=== PATIENT | male | born 1940 | race Caucasian/White ===

== ENCOUNTER → 2017-10-20 | Outpatient (CLI) | payer MEDICARE ==
[~2017-10-20] MED LIST: ASP81CT; OLME40TA14
[2017-10-20 11:30] LABS: BASOPHILS % (AUTO) 0 % (0-10); EOSINOPHILS # (AUTO) 0.1 10^3/uL (0.0-0.3); EOSINOPHILS % (AUTO) 1 % (0-10); HEMATOCRIT 43 % (40-54); HEMOGLOBIN 14.9 G/DL (13.3-17.7); LYMPHOCYTES # (AUTO) 1.3 X 10^3 (1.0-4.0); LYMPHOCYTES % (AUTO) 9 % (12-44); MEAN CORPUSCULAR HEMOGLOBIN 28 PG (25-34); MEAN CORPUSCULAR HGB CONC 35 G/DL (32-36); MEAN CORPUSCULAR VOLUME 79 FL (80-99); MEAN PLATELET VOLUME 10.7 FL (7.4-10.4); MONOCYTES # (AUTO) 1.6 X 10^3 (0.0-1.0); MONOCYTES % (AUTO) 11 % (0-12); NEUTROPHILS # (AUTO) 11.8 X 10^3 (1.8-7.8); NEUTROPHILS % (AUTO) 80 % (42-75); PLATELET COUNT 431 10^3/uL (130-400); RED BLOOD COUNT 5.39 10^6/uL (4.35-5.85); RED CELL DISTRIBUTION WIDTH 15.2 % (10.0-14.5); WHITE BLOOD COUNT 14.8 10^3/uL (4.3-11.0)
[2017-10-20 11:46] LABS: ALBUMIN 3.8 GM/DL (3.2-4.5); BUN/CREATININE RATIO 18; CALCIUM 9.7 MG/DL (8.5-10.1); CARBON DIOXIDE 28 MMOL/L (21-32); CHLORIDE 102 MMOL/L (98-107); CREATININE SERUM 0.91 MG/DL (0.60-1.30); GFR ESTIMATED > 60; GLUCOSE 132 MG/DL (70-105); PHOSPHORUS 2.7 MG/DL (2.3-4.7); POTASSIUM 3.5 MMOL/L (3.6-5.0); SODIUM 138 MMOL/L (135-145)
[2017-10-20 11:51] LABS: INR 2.7 (0.8-1.4); PROTHROMBIN TIME PATIENT 29.1 SEC (12.2-14.7)
[2017-10-20 12:04] LABS: BILIRUBIN,URINE NEGATIVE (NEGATIVE); CLARITY,URINE CLEAR; COLOR,URINE YELLOW; GLUCOSE, URINE (UA) NEGATIVE (NEGATIVE); KETONES,URINE NEGATIVE (NEGATIVE); LEUKOCYTE ESTERASE ,URINE NEGATIVE (NEGATIVE); NITRITE,URINE NEGATIVE (NEGATIVE); PH,URINE 6 (5-9); PROTEIN,URINE 2+ (NEGATIVE); UROBILINOGEN,URINE NORMAL (NORMAL)
[2017-10-20 12:14] LABS: BAND NEUTROPHILS 1 %; BASOPHILS % (MANUAL) 0 %; EOSINOPHILS % (MANUAL) 0 %; LYMPHOCYTES % (MANUAL) 6 %; MONOCYTES % (MANUAL) 10 %; NEUTROPHILS % (MANUAL) 77 %; REACTIVE LYMPHOCYTES 6 %
[2017-10-20 12:15] LABS: MICROCYTOSIS MODERATE; POIKILOCYTOSIS SLIGHT
[2017-10-20 12:26] LABS: ELLIPT/OVALOCYTES SLIGHT
[2017-10-20 12:38] LABS: BACTERIA,URINE NEGATIVE /HPF; SQUAMOUS EPITHELIAL CELL,UR RARE /HPF
--- NOTE | 2017-10-20 14:02 | Diagnostic Imaging Report ---
INDICATION: Bloating. TIME OF EXAM: 12:36 PM FINDINGS: The bowel gas pattern is nonspecific. There is mild gas-distended bowel loop in the right upper quadrant. Small bowel does not appear to be appreciably dilated. No pathologic calcifications are seen. No free air is identified. IMPRESSION: Nonspecific bowel gas pattern. Continued progress films could be obtained. No other significant abnormality is detected. Dictated by: Dictated on workstation # [id number]
== END ==
LOC: LAB 11:11
PROVIDERS: ATTEND Internal Medicine Cardiovascular Disease
DX: I50.9 Heart failure, unspecified (principal); R35.0 Frequency of micturition; R14.0 Abdominal distension (gaseous)
CPT/HCPCS: 36415; 74018; 80069; 81000; 85007; 85027; 85610

== ENCOUNTER 2021-04-07 21:47 | Emergency (ER) | payer MEDICARE ==
[~2021-04-07] VITALS: Ht 182.9 cm; Wt 99.8 kg
[2021-04-07] MEDS ORDERED: NS IV 1000 ML 1,000 ML IV SCH (22:15)
[2021-04-07 22:36] LABS: BASOPHILS # (AUTO) 0.1 10^3/uL (0.0-0.1); BASOPHILS % (AUTO) 1 % (0-10); EOSINOPHILS % (AUTO) 7 % (0-10); HEMATOCRIT 50 % (40-54); LYMPHOCYTES # (AUTO) 1.2 10^3/uL (1.0-4.0); LYMPHOCYTES % (AUTO) 8 % (12-44); MEAN CORPUSCULAR HEMOGLOBIN 26 pg (25-34); MEAN CORPUSCULAR HGB CONC 32 g/dL (32-36); MEAN CORPUSCULAR VOLUME 82 fL (80-99); MEAN PLATELET VOLUME 10.7 fL (9.0-12.2); MONOCYTES # (AUTO) 1.2 10^3/uL (0.0-1.0); MONOCYTES % (AUTO) 8 % (0-12); NEUTROPHILS # (AUTO) 11.5 10^3/uL (1.8-7.8); NEUTROPHILS % (AUTO) 76 % (42-75); PLATELET COUNT 576 10^3/uL (130-400); WHITE BLOOD COUNT 15.1 10^3/uL (4.3-11.0)
[2021-04-07 22:47] LABS: CHLORIDE 99 MMOL/L (98-107); POTASSIUM 3.9 MMOL/L (3.6-5.0); SODIUM 141 MMOL/L (135-145)
[2021-04-07 22:48] LABS: CALCIUM 9.9 MG/DL (8.5-10.1)
[2021-04-07 22:49] LABS: FIBRIN DEGRADATION PRODUCTS 3.85 UG/ML (0.00-0.49); GLUCOSE 131 MG/DL (70-105); INR 1.2 (0.8-1.4); PROTHROMBIN TIME PATIENT 15.7 SEC (12.2-14.7); TOTAL PROTEIN 7.7 GM/DL (6.4-8.2)
[2021-04-07 22:50] LABS: CARBON DIOXIDE 31 MMOL/L (21-32)
[2021-04-07 22:51] LABS: BILIRUBIN,TOTAL 2.1 MG/DL (0.1-1.0)
[2021-04-07 22:53] LABS: ALKALINE PHOSPHATASE 89 U/L (40-136); CREATININE SERUM 0.97 MG/DL (0.60-1.30); GFR ESTIMATED 74
[2021-04-07 22:54] LABS: BUN/CREATININE RATIO 12
[2021-04-07 22:56] LABS: ALANINE AMINOTRANSFERASE 15 U/L (0-55)
[2021-04-07] MEDS ORDERED: AZITHROMYCIN INJECTION 500 MG in NS (IVPB) 250 ML IV STA (23:51)
[2021-04-07] MEDS ORDERED: cefTRIAXone 1 GM PRE-MIX 50 ML IV STA (23:51)
[2021-04-08] MEDS ORDERED: ENOXAPARIN 100 MG/1 ML (LOVENOX) SYR SC ONE
--- NOTE | 2021-04-08 00:18 | Diagnostic Imaging Report ---
CLINICAL INDICATION: Patient with confusion and incontinence. EXAM: Portable chest x-ray upright view. COMPARISON: None. FINDINGS: Lungs/pleura: There is mild amorphous airspace opacities in both lung bases which may represent atelectasis versus infiltrate. There is no pneumothorax. There is no pleural effusion. Mediastinum: Unremarkable. Pulmonary vasculature: Unremarkable. Heart: There is mild cardiomegaly. Bones/extrathoracic soft tissue: There are degenerative spurs involving the thoracic spine. IMPRESSION: 1: There is mild bibasilar atelectasis versus infiltrates. 2: There is cardiomegaly with no significant pulmonary vascular congestion. Dictated by: Dictated on workstation # [id number]
[2021-04-08] MEDS ORDERED: APIX5TAB PO (01:29)
[2021-04-08] MEDS ORDERED: AZIT500T PO (01:29)
[2021-04-08] MEDS ORDERED: CEFD300C3 PO (01:29)
--- NOTE | 2021-04-08 01:29 | ED Respiratory ---
General Chief Complaint: General Problems/Pain Stated Complaint: CONGESTION,BREATHING ISSUES,FEVER Nursing Triage Note: Pt to ED 8 per WC with daughter. Daughter reports when she called to check on him on her way to see him, the aide at assisted living where he lives stated that he has respiratory symptoms and a fever and was given "2 grams of Tylenol". Pt is not answering questions for this RN at this time, daughter states he was fine two days ago when she saw him last and says he is only slightly more confused than baseline. Source: other (DAUGHTER) Exam Limitations: other (PT WITH DEMENTIA--UNABLE TO GIVE ANY RELEVANT INFORMATION) History of Present Illness Date Seen by Provider: Apr 07, 2021 Time Seen by Provider: 22:20 Initial Comments PT ARRIVES VIA POV FROM [facility]--DAUGHTER BROUGHT HIM DAUGHTER STATES THAT SHE WAS ON HER WAY TO SEE PT THIS EVENING AND SHE CALLED THEM ON HER WAY THERE, AND A STAFF MEMBER REPORTED TO HER THAT PT HAD A FEVER--THEY DID NOT REPORT TO DAUGHTER HOW HIGH TEMPERATURE WAS, BUT THAT THEY GAVE HIM "2 GRAMS OF TYLENOL" AT 2030 TONIGHT PT HAS HAD SOME COUGH AND CONGESTION, AND POSSIBLY SOME MILD SHORTNESS OF BREATH PT HAS BEEN EATING AND DRINKING WELL NO VOMITING OR DIARRHEA ON DIRECT QUESTIONING, PT DENIES PAIN ANYWHERE OR FEELING BAD PT WITH DEMENTIA, AND IS POSSIBLY A LITTLE LESS "ALERT" THAN NORMAL TONIGHT DAUGHTER STATES SHE LAST SAW HIM 2 DAYS AGO AND HE WAS FINE. PT DOES NOT HAVE HOME O2 OR HAVE ANY CHRONIC RESPIRATORY PROBLEMS PT HAS HAD COVID-19 VACCINE X 4--HAD INITIAL VACCINES X 2, THEN HAD A BOOSTER ON 03/06/21, AND HE HAD ANOTHER ONE AT [facility] ON 04/01/21. PT HAS ALSO HAD FLU VACCINE. PCP: DR. BORJAS ENGINEER TECHNICAL STAFF: DR. DUNBAR Allergies and Home Medications Allergies Coded Allergies: No Known Allergies (Unverified Allergy, Mild, 03/22/07) Patient Home Medication List Home Medication List Reviewed: Yes Apixaban (Eliquis) 5 Mg Tablet, 5 MG PO BID Prescribed by: LORRAINE CHAUDHRY on 04/08/21 0129 Aspirin (Aspirin) 81 Mg Tablet, (Reported) Entered as Reported by: ANISA MORALES on 03/22/07 0328 Azithromycin (Zithromax) 500 Mg Tablet, 500 MG PO DAILY Prescribed by: LORRAINE CHAUDHRY on 04/08/21128 Cefdinir (Cefdinir) 300 Mg Capsule, 300 MG PO BID Prescribed by: LORRAINE CHAUDHRY on 04/08/21128 Olmesartan Medoxomil (Benicar) 40 Mg Tablet, (Reported) Entered as Reported by: ANISA MORALES on 03/22/07 0328 Review of Systems Review of Systems Constitutional: see HPI, fever EENTM: no symptoms reported Respiratory: see HPI, cough, short of breath Cardiovascular: no symptoms reported Gastrointestinal: no symptoms reported Genitourinary: no symptoms reported Musculoskeletal: no symptoms reported Skin: no symptoms reported Psychiatric/Neurological: See HPI Hematologic/Lymphatic: No Symptoms Reported Immunological/Allergic: no symptoms reported Past Nsadocw-Iijopr-Ghlste Hx Patient Social History Tobacco Use?: No Use of E-Cig and/or Vaping dev: No Substance use?: No Alcohol Use?: No Pt feels they are or have been: No Immunizations Up To Date Influenza Vaccine Up-to-Date: Yes; Up-to-Date First/Initial COVID19 Vaccinat: 2020 Second COVID19 Vaccination Luke: 2020 Third COVID19 Vaccination Date: 03/06/21 Past Medical History Respiratory: No Cardiac: Yes (CHF) Atrial Fibrillation, Chronic Edema/Swelling, High Cholesterol, Hypertension Neurological: Yes Dementia Genitourinary: No Gastrointestinal: Yes Chronic Constipation Musculoskeletal: Yes Arthritis Endocrine: Yes Diabetes, Non-Insulin dep Psychosocial: Yes Anxiety Integumentary: No Physical Exam Vital Signs - First Documented 04/07/21 22:02 Temp 36.8 Pulse 90 Resp 20 B/P (MAP) 172/78 (109) Pulse Ox 93 O2 Delivery Room Air Capillary Refill : Height: '" Weight: lbs. oz. kg; 29.00 BMI Method: General Appearance: WD/WN, no apparent distress, other (FREQUENT, LOOSE, SHALLOW COUGH. ) HEENT: normal ENT inspection Neck: normal inspection Respiratory: no respiratory distress, no accessory muscle use, rales, rhonchi Cardiovascular: no JVD, no murmur, irregularly irregular Gastrointestinal: non tender, soft Extremities: normal capillary refill, pedal edema (4+ EDEMA ON RIGHT, 3+ EDEMA ON LEFT. --NORMAL FOR PT, PER DAUGHTER) Neurologic/Psychiatric: no motor/sensory deficits, alert, normal mood/affect, other (ORIENTED TO DAUGHTER, COOPERATIVE FOR EXAM, ABLE TO ANSWER SIMPLE QUESTIONS AND FOLLOW COMMANDS. BASELINE DEMENTIA. SPEECH IS CLEAR) Skin: normal color, warm/dry Focused Exam Lactate Level 04/07/21 22:24: Lactic Acid Level 1.42 Lactic Acid Level Laboratory Tests Test 04/07/21 22:24 Lactic Acid Level 1.42 MMOL/L (0.50-2.00) Progress/Results/Core Measures Suspected Sepsis SIRS Temperature: Pulse: 90 Respiratory Rate: 20 Laboratory Tests 04/07/21 22:24: White Blood Count 15.1H Blood Pressure 172 /78 Mean: 109 04/07/21 22:24: Lactic Acid Level 1.42 Laboratory Tests 04/07/21 22:24: Creatinine 0.97, INR Comment 1.2, Platelet Count 576H, Total Bilirubin 2.1H Results/Orders Lab Results Laboratory Tests Test 04/07/21 22:10 04/07/21 22:12 04/07/21 22:24 Range/Units Glucometer 116 H 70-110 MG/DL Influenza Type A Antigen NEGATIVE NEGATIVE Influenza Type B Antigen NEGATIVE NEGATIVE SARS-CoV-2 RNA (RT-PCR) Negative Negative White Blood Count 15.1 H 4.3-11.0 10^3/uL Red Blood Count 6.07 H 4.30-5.52 10^6/uL Hemoglobin 16.0 13.3-17.7 g/dL Hematocrit 50 40-54 % Mean Corpuscular Volume 82 80-99 fL Mean Corpuscular Hemoglobin 26 25-34 pg Mean Corpuscular Hemoglobin Concent 32 32-36 g/dL Red Cell Distribution Width 14.5 10.0-14.5 % Platelet Count 576 H 130-400 10^3/uL Mean Platelet Volume 10.7 9.0-12.2 fL Immature Granulocyte % (Auto) 1 % Neutrophils (%) (Auto) 76 H 42-75 % Lymphocytes (%) (Auto) 8 L 12-44 % Monocytes (%) (Auto) 8 0-12 % Eosinophils (%) (Auto) 7 0-10 % Basophils (%) (Auto) 1 0-10 % Neutrophils # (Auto) 11.5 H 1.8-7.8 10^3/uL Lymphocytes # (Auto) 1.2 1.0-4.0 10^3/uL Monocytes # (Auto) 1.2 H 0.0-1.0 10^3/uL Eosinophils # (Auto) 1.0 H 0.0-0.3 10^3/uL Basophils # (Auto) 0.1 0.0-0.1 10^3/uL Immature Granulocyte # (Auto) 0.1 0.0-0.1 10^3/uL Prothrombin Time 15.7 H 12.2-14.7 SEC INR Comment 1.2 0.8-1.4 Activated Partial Thromboplast Time 37 H 24-35 SEC D-Dimer 3.85 H 0.00-0.49 UG/ML Sodium Level 141 135-145 MMOL/L Potassium Level 3.9 3.6-5.0 MMOL/L Chloride Level 99 98-107 MMOL/L Carbon Dioxide Level 31 21-32 MMOL/L Anion Gap 11 5-14 MMOL/L Blood Urea Nitrogen 12 7-18 MG/DL Creatinine 0.97 0.60-1.30 MG/DL Estimat Glomerular Filtration Rate 74 BUN/Creatinine Ratio 12 Glucose Level 131 H 70-105 MG/DL Lactic Acid Level 1.42 0.50-2.00 MMOL/L Calcium Level 9.9 8.5-10.1 MG/DL Corrected Calcium 9.9 8.5-10.1 MG/DL Total Bilirubin 2.1 H 0.1-1.0 MG/DL Aspartate Amino Transf (AST/SGOT) 20 5-34 U/L Alanine Aminotransferase (ALT/SGPT) 15 0-55 U/L Alkaline Phosphatase 89 40-136 U/L Lactate Dehydrogenase 316 H 125-220 U/L Troponin I < 0.028 <0.028 NG/ML C-Reactive Protein High Sensitivity 1.65 H 0.00-0.50 MG/DL Total Protein 7.7 6.4-8.2 GM/DL Albumin 4.0 3.2-4.5 GM/DL Procalcitonin 0.03 <0.10 NG/ML My Orders Orders - LORRAINE CHAUDHRY DO Azithromycin Injection (Zithromax Inject (04/07/21 23:51) Ceftriaxone 1 Gm Pre-Mix (Rocephin 1 Gm (04/07/21 23:51) Enoxaparin Injection (Lovenox Injection) (04/08/21 00:00) Medications Given in ED Current Medications Medications Dose Ordered Sig/Humera Route Start Time Stop Time Status Last Admin Dose Admin Enoxaparin Sodium 100 mg ONCE ONCE SC 04/08/21 00:00 04/08/21 00:01 DC 04/08/21 00:06 100 MG Vital Signs/I&O 04/07/21 04/08/21 22:02 02:00 Temp 36.8 36.8 Pulse 90 85 Resp 20 16 B/P (MAP) 172/78 (109) 158/82 Pulse Ox 93 94 O2 Delivery Room Air Room Air 04/08/21 00:00 Intake Total 1000 ml Balance 1000 ml Capillary Refill : Blood Pressure Mean: 109 Point of Care Testing Finger Stick Blood Glucose: 116 Progress Note : Progress Note PLACED IN ISOLATION ROOM PPE WORN COVID-19 TESTING DONE 2344--DAUGHTER NOW REPORTS THAT PT CANNOT TOLERATE CT SCAN, ETC.-STATES HE GETS ANXIOUS, AND CANNOT LAY STILL FOR ANY TYPE OF SCAN WILL GIVE LOVENOX, AND SEND HOME WITH RX FOR ELIQUIS, DUE TO ELEVATED D-DIMER, AND PT TO FOLLOW UP WITH DR. BORJAS FOR FURTHER EVALUATION, DAUGHTER STATES THAT PT USED TO BE ON BLOOD THINNER FOR CHRONIC ATRIAL FIBRIL LATION, BUT DR. DUNBAR ( ENGINEER TECHNICAL STAFF ) TOOK HIM OFF IT DUE TO FALL RISK. GIVEN ROCEPHIN AND ZITHROMAX UNEVENTFUL ER STAY--SLEPT THROUGH MOST OF STAY NO FEVER NO HYPOXIA NO HYPOTENSION NO TACHYCARDIA NO DYSPNEA DAUGHTER FEELS COMFORTABLE TAKING HIM BACK TO [facility], AND WILL FOLLOW UP WITH DR. BORJAS ECG Initial ECG Impression Date: Apr 07, 2021 Initial ECG Impression Time: 22:10 Initial ECG Rate: 94 Initial ECG Rhythm: A Fib/Flutter (WITH PVC'S) Initial ECG Impression: Nonspecific Changes Diagnostic Imaging Comments CXR--RLL INFILTRATE, POSSIBLE LLL INFILTRATE, PENDING RADIOLOGIST REVIEW Reviewed: Reviewed by Me Departure Impression Primary Impression: Pneumonia Additional Impression: Elevated d-dimer Disposition: 03 XFER SNF Condition: Stable Departure-Patient Inst. Decision time for Depature: 01:27 Referrals: NICHELLE BORJAS DO Patient Instructions: Community-Acquired Pneumonia, Adult (DC) Add. Discharge Instructions: CONTINUE YOUR REGULAR MEDICATIONS PRESCRIBED FOLLOW UP WITH DR. BORJAS IN 2-3 DAYS FOR FURTHER CARE RETURN TO ER IF WORSE All discharge instructions reviewed with patient and/or family. Voiced understanding. Scripts Apixaban (Eliquis) 5 Mg Tablet 5 MG PO BID for 30 Days, #74 TAB TAKE 2 TABLETS BID X 7 DAYS, THEN 1 TABLET BID Prov: LORRAINE CHAUDHRY DO 04/08/21 Azithromycin (Zithromax) 500 Mg Tablet 500 MG PO DAILY for 5 Days, #5 TAB Prov: LORRAINE CHAUDHRY DO 04/08/21 Cefdinir (Cefdinir) 300 Mg Capsule 300 MG PO BID, #20 CAP Prov: LORRAINE CHAUDHRY DO 04/08/21 LORRAINE CHAUDHRY DO Apr 08, 2021 01:29
[2021-04-08 02:00] VITALS: BP 158/82
== END 2021-04-08 02:04 | disposition home or self-care (01) ==
LOC: EDUNIT# 21:47 → ER 21:53
DX: J18.9 Pneumonia, unspecified organism (principal); R79.89 Other specified abnormal findings of blood chemistry; I11.0 Hypertensive heart disease with heart failure; I50.9 Heart failure, unspecified; F03.90 Unspecified dementia, unspecified severity, without behavioral disturbance, psychotic disturbance, mood disturbance, and anxiety; E11.9 Type 2 diabetes mellitus without complications; Z20.822 Contact with and (suspected) exposure to COVID-19; Z79.82 Long term (current) use of aspirin
CPT/HCPCS: 36415; 71045; 80053; 82947; 83605; 83615; 84145; 84484; 85025; 85379; 85610; 85730; 86141; 87040; 87077; 87635; 87636; 87804; 93005; 96372; 96374; 96375

== ENCOUNTER → 2021-07-01 | Outpatient (CLI) | payer MEDICARE ==
[~2021-07-01] MED LIST changes: +APIX5TAB PO; +AZIT500T PO; +CEFD300C3 PO
== END ==
LOC: WOUNDCARE 09:08
PROVIDERS: ATTEND Family Medicine
DX: L89.152 Pressure ulcer of sacral region, stage 2 (principal); L22 Diaper dermatitis; F03.91 Unspecified dementia, unspecified severity, with behavioral disturbance; E11.622 Type 2 diabetes mellitus with other skin ulcer; R32 Unspecified urinary incontinence
CPT/HCPCS: A6212; G0463; 99213

== ENCOUNTER → 2021-07-08 | Outpatient (CLI) | payer MEDICARE | LOC: WOUNDCARE 10:27 | PROVIDERS: ATTEND Family Medicine | DX: L22 Diaper dermatitis (principal); F03.91 Unspecified dementia, unspecified severity, with behavioral disturbance; R32 Unspecified urinary incontinence | CPT/HCPCS: 99212 ==

== ENCOUNTER 2021-12-17 20:45 | Emergency (ER) | payer MEDICARE ==
[~2021-12-17] VITALS: Ht 185 cm; Wt 100.0 kg
[2021-12-17] MEDS ORDERED: LORA-404 (20:56)
[2021-12-17] MEDS ORDERED: POLY119P5 (20:56)
[2021-12-17] MEDS ORDERED: OLN5T (20:56)
[2021-12-17] MEDS ORDERED: TRZ50T (20:56)
[2021-12-17] MEDS ORDERED: LACT20SO2 (20:56)
[2021-12-17] MEDS ORDERED: HYDR-3922 (20:57)
[2021-12-17] MEDS ORDERED: CRV25T (20:57)
--- NOTE | 2021-12-17 21:21 | ED Cough/URI ---
General Chief Complaint: Cough/Cold/Flu Symptoms Stated Complaint: FEVER, RUNNY NOSE Nursing Triage Note: brought in by [facility] with fever, runny nose, cough today. Source: family Exam Limitations: no limitations History of Present Illness Date Seen by Provider: Dec 17, 2021 Time Seen by Provider: 21:21 Allergies and Home Medications Allergies Coded Allergies: No Known Allergies (Unverified Allergy, Mild, 03/22/07) Patient Home Medication List Apixaban (Eliquis) 5 Mg Tablet, 5 MG PO BID Prescribed by: LORRAINE CHAUDHRY on 04/08/21128 Aspirin (Aspirin) 81 Mg Tablet, (Reported) Entered as Reported by: ANISA MORALES on 03/22/07327 Azithromycin (Zithromax) 500 Mg Tablet, 500 MG PO DAILY Prescribed by: LORRAIEN CHAUDHRY on 04/08/21128 Carvedilol (Coreg) 25 Mg Tab, (Reported) Entered as Reported by: JASON MOON on 12/17/212056 Last Action: New Order Cefdinir (Cefdinir) 300 Mg Capsule, 300 MG PO BID Prescribed by: LORRAINE CHAUDHRY on 04/08/21128 Hydralazine HCl (Hydralazine HCl) 10 Mg Tablet, (Reported) Entered as Reported by: JASON MOON on 12/17/212056 Last Action: New Order Lactulose (Lactulose) 20 Gram/30 Ml Solution, (Reported) Entered as Reported by: JASON MOON on 12/17/212055 Last Action: New Order Lorazepam (Ativan) 0.5 Mg Tablet, (Reported) Entered as Reported by: JASON MOON on 12/17/212055 Last Action: New Order Olanzapine (Olanzapine) 5 Mg Tablet, (Reported) Entered as Reported by: JASON MOON on 12/17/212055 Last Action: New Order Olmesartan Medoxomil (Benicar) 40 Mg Tablet, (Reported) Entered as Reported by: ANISA MORALES on 03/22/07327 Polyethylene Glycol 3350 (Miralax) 17 Gram/Dose Powder, (Reported) Entered as Reported by: AJSON MOON on 12/17/212055 Last Action: New Order Trazodone HCl (Trazodone HCl) 50 Mg Tablet, (Reported) Entered as Reported by: JASON MOON on 12/17/212055 Last Action: New Order Past Urxhyqy-Wompmf-Eyfzuv Hx Patient Social History Tobacco Use?: No Substance use?: No Alcohol Use?: No Pt feels they are or have been: No Immunizations Up To Date First/Initial COVID19 Vaccinat: 2020 Second COVID19 Vaccination Luke: 2020 Third COVID19 Vaccination Date: 03/06/21 COVID19 Vaccine Mixer Helper: moderna Past Medical History Surgery/Hospitalization HX: dementia, pneumonia, chf, afib, high cholesterol, htn, ch. edema, arthritis, niddm, anxiety Respiratory: No Cardiac: Yes (CHF) Atrial Fibrillation, Chronic Edema/Swelling, High Cholesterol, Hypertension Neurological: Yes Dementia Genitourinary: No Gastrointestinal: Yes Chronic Constipation Musculoskeletal: Yes Arthritis Endocrine: Yes Diabetes, Non-Insulin dep Psychosocial: Yes Anxiety Integumentary: No Physical Exam Vital Signs - First Documented Capillary Refill : Less Than 3 Seconds Height: '" Weight: lbs. oz. kg; 29.00 BMI Method: Progress/Results/Core Measures Suspected Sepsis SIRS Temperature: Pulse: 78 Respiratory Rate: 18 Blood Pressure 156 /106 Mean: 123 Results/Orders Lab Results Laboratory Tests Test 12/17/21 20:50 Range/Units Influenza Type A (RT-PCR) Not Detected Not Detecte Influenza Type B (RT-PCR) Not Detected Not Detecte SARS-CoV-2 RNA (RT-PCR) Detected H Not Detecte My Orders Orders - EMILIA HENLEY APRN Covid 19 Inhouse Test (12/17/21 20:58) Influenza A And B By Pcr (12/17/21 20:58) Chest 1 View, Ap/Pa Only (12/17/21 21:21) Bebtelovimab (Bebtelovimab) (12/17/21 22:15) Nursing Communication (Order) (12/17/21 22:03) Ed Iv/Invasive Line Start (12/17/21 22:19) Medications Given in ED Current Medications Medications Dose Ordered Sig/Humera Route Start Time Stop Time Status Last Admin Dose Admin Bebtelovimab 175 mg ONCE ONCE IV 12/17/21 22:15 12/17/21 22:16 DC 12/17/21 22:24 175 MG Vital Signs/I&O 12/17/21 12/17/21 20:46 20:46 Temp 37.6 Pulse 78 Resp 18 B/P (MAP) 156/106 (123) Pulse Ox 96 O2 Delivery Room Air Room Air Capillary Refill : Less Than 3 Seconds Blood Pressure Mean: 123 Departure Impression Primary Impression: COVID-19 Disposition: 01 HOME, SELF-CARE Condition: Stable Departure-Patient Inst. Decision time for Depature: 23:14 Referrals: NO,LOCAL PHYSICIAN (PCP/Family) Primary Care Physician Patient Instructions: COVID-19 (DC) Add. Discharge Instructions: Plan: 1. Discharge to [facility]. You received monoclonal antibody infusion today in the ER. 2. May take Tylenol as needed for fever and pain. 6. Return to ER if you develop: trouble breathing, persistent pain or pressure in the chest, new confusion, inability to wake or stay awake, pale, arias, blue- colored skin, lips, or nail beds depending on skin tone. 7. Return to ER for any other new, concerning, or worsening symptoms. All discharge instructions reviewed with patient and/or family. Voiced understanding. EMILIA HENLEY CLEANER AND POLISHER Dec 17, 2021 21:21
--- NOTE | 2021-12-17 21:51 | Diagnostic Imaging Report ---
Indication: Cough and fever, COVID positive Frontal chest obtained at 9:38 p.m. and compared to 04/07/2021. There is cardiomegaly. There is central vascular congestion. There are underlying chronic appearing increased interstitial markings, there is no consolidation or pneumothorax or pleural fluid. Impression: Cardiomegaly and central vascular congestion with chronic appearing increased interstitial markings similar to 04/07/2021. No overt acute consolidation or pleural fluid. Dictated by: Dictated on workstation # [id number]
[2021-12-17] MEDS ORDERED: BEBTELOVIMAB 175 MG/2 ML VIAL IV ONE (22:15)
[2021-12-17 23:19] VITALS: BP 146/82
== END 2021-12-17 23:26 | disposition home or self-care (01) ==
LOC: EDUNIT# 20:45 → ER 20:46
DX: U07.1 COVID-19 (principal)
CPT/HCPCS: 71045; 87636

== ENCOUNTER 2022-04-08 12:31 | Emergency (ER) | payer MEDICARE ==
[~2022-04-08] VITALS: Ht 185 cm; Wt 95.0 kg
[2022-04-08 12:31] VITALS: BP 168/91
[~2022-04-08 12:31] MED LIST changes: +CRV25T; +HYDR-3922; +LACT20SO2; +LORA-404; +OLN5T; +POLY119P5; +TRZ50T
[2022-04-08 13:12] LABS: BASOPHILS # (AUTO) 0.1 10^3/uL (0.0-0.1); BASOPHILS % (AUTO) 1 % (0-10); EOSINOPHILS # (AUTO) 0.8 10^3/uL (0.0-0.3); EOSINOPHILS % (AUTO) 8 % (0-10); HEMATOCRIT 46 % (40-54); HEMOGLOBIN 14.7 g/dL (13.3-17.7); LYMPHOCYTES # (AUTO) 1.3 10^3/uL (1.0-4.0); LYMPHOCYTES % (AUTO) 14 % (12-44); MEAN CORPUSCULAR HEMOGLOBIN 27 pg (25-34); MEAN CORPUSCULAR HGB CONC 32 g/dL (32-36); MEAN CORPUSCULAR VOLUME 83 fL (80-99); MONOCYTES # (AUTO) 0.9 10^3/uL (0.0-1.0); MONOCYTES % (AUTO) 10 % (0-12); NEUTROPHILS # (AUTO) 6.1 10^3/uL (1.8-7.8); NEUTROPHILS % (AUTO) 66 % (42-75); PLATELET COUNT 473 10^3/uL (130-400); WHITE BLOOD COUNT 9.3 10^3/uL (4.3-11.0)
[2022-04-08 13:19] LABS: INR 1.1 (0.8-1.4); PROTHROMBIN TIME PATIENT 14.9 SEC (12.2-14.7)
[2022-04-08 13:21] LABS: FIBRIN DEGRADATION PRODUCTS 3.12 UG/ML (0.00-0.49)
[2022-04-08 13:27] LABS: ALANINE AMINOTRANSFERASE 16 U/L (0-55); ALBUMIN 3.8 GM/DL (3.2-4.5); ALKALINE PHOSPHATASE 78 U/L (40-136); BILIRUBIN,TOTAL 1.2 MG/DL (0.1-1.0); BUN/CREATININE RATIO 24; CALCIUM 9.5 MG/DL (8.5-10.1); CARBON DIOXIDE 29 MMOL/L (21-32); CHLORIDE 104 MMOL/L (98-107); CREATININE SERUM 0.86 MG/DL (0.60-1.30); GFR ESTIMATED 86; GLUCOSE 120 MG/DL (70-105); POTASSIUM 3.8 MMOL/L (3.6-5.0); SODIUM 141 MMOL/L (135-145)
--- NOTE | 2022-04-08 13:39 | ED Neurological Problem ---
General Chief Complaint: Neurological Problems Stated Complaint: POSSIBLE STROKE Nursing Triage Note: ARRIVED VIA EMS FROM [facility]. STAFF THERE STATES HIS LAST WELL KNOWN TIME WAS 1115 TODAY. DECREASED LOC, LEANING TO THE LEFT WITH LEFT SIDED FACIAL DROOP. UPON EMS ARRIVAL PT WAS BACK TO BASELINE. BLOOD SUGAR 118 Source: patient, caregiver Exam Limitations: other (Dementia) History of Present Illness Date Seen by Provider: Apr 08, 2022 Time Seen by Provider: 12:36 Initial Comments Here by EMS from [facility]. Apparently staff noted left facial droop and left-sided weakness. EMS was called. His blood sugar was normal and he had returned to baseline on their arrival. Transported here. Patient is pleasant but does have dementia and does not know his history. group home records reviewed. He is not on blood thinners. Patient's nurse dairy department manager from [facility] arrived and she reports that he is at his baseline now and she does not note any deficit. She reports that he had a normal breakfast this morning and ate well and otherwise has not been ill or ill-appearing recently. Timing/Duration: 1/2 hour, episodic Severity: mild Associated Symptoms: No fever/chills; weakness Allergies and Home Medications Allergies Coded Allergies: No Known Allergies (Unverified Allergy, Mild, 03/22/07) Patient Home Medication List Home Medication List Reviewed: Yes (group home med list reviewed. Patient is not on blood thinners.) Apixaban (Eliquis) 5 Mg Tablet, 5 MG PO BID Prescribed by: LORRAINE CHAUDHRY on 04/08/21128 Aspirin (Aspirin) 81 Mg Tablet, (Reported) Entered as Reported by: ANISA MORALES on 03/22/07 0328 Azithromycin (Zithromax) 500 Mg Tablet, 500 MG PO DAILY Prescribed by: LORRAINE CHAUDHRY on 04/08/21128 Carvedilol (Coreg) 25 Mg Tab, (Reported) Entered as Reported by: JASON MOON on 12/17/212056 Cefdinir (Cefdinir) 300 Mg Capsule, 300 MG PO BID Prescribed by: LORRAINE CHAUDHRY on 04/08/21128 Hydralazine HCl (Hydralazine HCl) 10 Mg Tablet, (Reported) Entered as Reported by: JASON MOON on 12/17/212056 Lactulose (Lactulose) 20 Gram/30 Ml Solution, (Reported) Entered as Reported by: JASON MOON on 12/17/212055 Lorazepam (Ativan) 0.5 Mg Tablet, (Reported) Entered as Reported by: JASON MOON on 12/17/212055 Olanzapine (Olanzapine) 5 Mg Tablet, (Reported) Entered as Reported by: JASON MOON on 12/17/212055 Olmesartan Medoxomil (Benicar) 40 Mg Tablet, (Reported) Entered as Reported by: ANISA MORALES on 03/22/07327 Polyethylene Glycol 3350 (Miralax) 17 Gram/Dose Powder, (Reported) Entered as Reported by: JASON MOON on 12/17/212055 Trazodone HCl (Trazodone HCl) 50 Mg Tablet, (Reported) Entered as Reported by: JASON MOON on 12/17/212055 Review of Systems Review of Systems Constitutional: No chills, No fever Respiratory: No short of breath Cardiovascular: No chest pain Psychiatric/Neurological: Cognitive Dysfunction (Dementia) Unable to complete review of systems due to history of dementia and patient very poor historian but has no significant complaints. Past Jaoeali-Ukegcc-Zyhmil Hx Patient Social History Tobacco Use?: No Substance use?: No Alcohol Use?: No Immunizations Up To Date First/Initial COVID19 Vaccinat: 2020 Second COVID19 Vaccination Luke: 2020 Third COVID19 Vaccination Date: 03/06/21 Past Medical History Surgery/Hospitalization HX: dementia, pneumonia, chf, afib, high cholesterol, htn, ch. edema, arthritis, niddm, anxiety Respiratory: No Cardiac: Yes (CHF) Atrial Fibrillation, Chronic Edema/Swelling, High Cholesterol, Hypertension Neurological: Yes Dementia Genitourinary: No Gastrointestinal: Yes Chronic Constipation Musculoskeletal: Yes Arthritis Endocrine: Yes Diabetes, Non-Insulin dep Psychosocial: Yes Anxiety Integumentary: No Family Medical History Reviewed Nursing Family Hx No Pertinent Family Hx Physical Exam Vital Signs Vital Signs - First Documented 04/08/22 12:31 Temp 35.7 Pulse 67 Resp 18 B/P (MAP) 168/91 Pulse Ox 96 O2 Delivery Room Air Capillary Refill : Less Than 3 Seconds Height, Weight, BMI Height: '" Weight: lbs. oz. kg; 27.00 BMI Method: General Appearance: WD/WN, no apparent distress HEENT: PERRL/EOMI, pharynx normal Neck: full range of motion, supple Respiratory: lungs clear, normal breath sounds Cardiovascular: bradycardia, irregularly irregular Peripheral Pulses: 2+ Dorsalis Pedis (R), 2+ Left Dors-Pedis (L), 2+ Radial Pulses (R), 2+ Radial Pulses (L) Gastrointestinal: non tender, soft Extremities: normal capillary refill, pelvis stable, pedal edema (2+ edema bilateral lower extremities to the level of mid tibia bilateral) Neurologic/Psychiatric: alert, other (Answers simple questions and follow simple commands but is not oriented to place or time. This is baseline per care staff attendant with him) Crainal Nerves: normal speech; No facial asymmetry, No facial droop, No facial weakness Coordination/Gait: other (Is able to move and hold both arms up and handgrip equal bilateral.) Motor/Sensory: no sensory deficit Skin: normal color, warm/dry Progress/Results/Core Measures Results/Orders Lab Results Laboratory Tests Test 04/08/22 12:50 04/08/22 13:10 Range/Units White Blood Count 9.3 4.3-11.0 10^3/uL Red Blood Count 5.51 4.30-5.52 10^6/uL Hemoglobin 14.7 13.3-17.7 g/dL Hematocrit 46 40-54 % Mean Corpuscular Volume 83 80-99 fL Mean Corpuscular Hemoglobin 27 25-34 pg Mean Corpuscular Hemoglobin Concent 32 32-36 g/dL Red Cell Distribution Width 15.6 H 10.0-14.5 % Platelet Count 473 H 130-400 10^3/uL Mean Platelet Volume 11.0 9.0-12.2 fL Immature Granulocyte % (Auto) 1 % Neutrophils (%) (Auto) 66 42-75 % Lymphocytes (%) (Auto) 14 12-44 % Monocytes (%) (Auto) 10 0-12 % Eosinophils (%) (Auto) 8 0-10 % Basophils (%) (Auto) 1 0-10 % Neutrophils # (Auto) 6.1 1.8-7.8 10^3/uL Lymphocytes # (Auto) 1.3 1.0-4.0 10^3/uL Monocytes # (Auto) 0.9 0.0-1.0 10^3/uL Eosinophils # (Auto) 0.8 H 0.0-0.3 10^3/uL Basophils # (Auto) 0.1 0.0-0.1 10^3/uL Immature Granulocyte # (Auto) 0.1 0.0-0.1 10^3/uL Prothrombin Time 14.9 H 12.2-14.7 SEC INR Comment 1.1 0.8-1.4 Activated Partial Thromboplast Time 35 24-35 SEC D-Dimer 3.12 H 0.00-0.49 UG/ML Sodium Level 141 135-145 MMOL/L Potassium Level 3.8 3.6-5.0 MMOL/L Chloride Level 104 98-107 MMOL/L Carbon Dioxide Level 29 21-32 MMOL/L Anion Gap 8 5-14 MMOL/L Blood Urea Nitrogen 21 H 7-18 MG/DL Creatinine 0.86 0.60-1.30 MG/DL Estimat Glomerular Filtration Rate 86 BUN/Creatinine Ratio 24 Glucose Level 120 H 70-105 MG/DL Calcium Level 9.5 8.5-10.1 MG/DL Corrected Calcium 9.7 8.5-10.1 MG/DL Total Bilirubin 1.2 H 0.1-1.0 MG/DL Aspartate Amino Transf (AST/SGOT) 18 5-34 U/L Alanine Aminotransferase (ALT/SGPT) 16 0-55 U/L Alkaline Phosphatase 78 40-136 U/L Troponin I < 0.028 <0.028 NG/ML Total Protein 7.0 6.4-8.2 GM/DL Albumin 3.8 3.2-4.5 GM/DL Glucometer 98 70-110 MG/DL My Orders Orders - CHINA MORALES MD Cbc With Automated Diff (04/08/22 13:04) Protime With Inr (04/08/22 13:04) Partial Thromboplastin Time (04/08/22 13:04) Comprehensive Metabolic Panel (04/08/22 13:04) Fibrin Degradation Products (04/08/22 13:04) Troponin I Kimble (04/08/22 13:04) Ua Culture If Indicated (04/08/22 13:04) Chest 1 View, Ap/Pa Only (04/08/22 13:04) Nothing By Mouth (04/08/22 Lunch) Accucheck Stat ONCE (04/08/22 13:04) Ed Iv/Invasive Line Start (04/08/22 13:04) Vital Signs Stroke Patient Q15M (04/08/22 13:04) Ct Head Wo-R/O Stroke (04/08/22 13:04) O2 (04/08/22 13:04) Intake & Output 06,14,22 (04/08/22 13:04) Monitor-Rhythm Ecg Trace Only (04/08/22 13:04) Dysphagia Screening Tool Q10MX1 (04/08/22 13:04) Lipid Panel (04/09/22 06:00) Vital Signs/I&O 04/08/22 04/08/22 12:31 12:31 Temp 35.7 Pulse 67 62 Resp 18 16 B/P (MAP) 168/91 168/91 (116) Pulse Ox 96 96 O2 Delivery Room Air Blood Pressure Mean: 116 FSBG Bedside Testing Finger Stick Blood Glucose: 98 Blood Glucose Action Taken: PROVIDER NOTIFIED Progress Progress Note : Progress Note Seen and evaluated. Stroke order set initiated including IV, CBC, CMP, D-dimer, troponin, EKG, chest x-ray and CT of the head. Patient appears to be at baseline now without any significant findings. We did attempt stroke scale but due to patient's dementia and understanding, we were not able to complete that. I do not find any significant focal neurodeficit other than his dementia findings and he has no facial droop, speech problems or one-sided weakness noted. group home nurse director at bedside. Monitor patient. Differential includes stroke, TIA, electrolyte abnormality 1337: Patient remains at baseline. I did discuss the results of the CT scan with the radiologist on-call. He reports no acute findings and has chronic brain disease with volume loss. See final report for details below. CBC shows normal white count and normal hemoglobin. Chemistry shows normal electrolytes with normal serum creatinine and troponin is negative. D-dimer is elevated at greater than 3. Chest x-ray shows no acute findings on my interpretation. Pending radiology review. Patient's son is coming to the emergency department. I will talk to him about the elevated D-dimer. This may be related to patient's atrial fibrillation and he is not anticoagulated as would be expected in a patient that has significant increased risk for fall. Monitor patient. 1445: I did discuss all the findings that we currently have with the patient's family at bedside. Son is here and he is DPOA. We did discuss the elevated D- dimer and consideration for further imaging with CT angiogram. While this may find carotid artery stenosis, family would not want to pursue surgery. Ultimately we decided against CT angiogram and all understand that there may be some underlying condition not evaluated that could result in worsening or ultimately . He is advanced age and advanced dementia and they are just more interested in keeping him comfortable at this time for which I agree. At this point we will discharge him back to [facility] care homes and have him continue his previously scheduled medications. They will follow-up with his doctor as needed. Discharged with return precautions. Nurse dairy department manager from facility and family verbalized understanding of instructions and agreement with plan. Initial ECG Impression Date: Apr 08, 2022 Initial ECG Impression Time: 12:36 Initial ECG Rate: 53 Initial ECG Rhythm: A Fib/Flutter Comment Atrial fibrillation with slow ventricular response. Leftward axis. No evidence of ST elevation [place]. Interpreted by me. Diagnostic Imaging Diagonstic Imaging: Xray Plain Films/CT/US/NM/MRI: [facility] [place] [place] NAME: SAE HORNER [facility] REC#: [id number] PT STATUS: REG ER : 1940 PHYSICIAN: CHINA MORALES MD ADMIT DATE: 04/08/22/ER Signed Date of Exam:04/08/22 CHEST 1 VIEW, AP/PA ONLY INDICATION: Stroke, decreased level of consciousness and facial droop. Frontal chest obtained at 1:31 p.m. and compared to 12/17/2021. FINDINGS: There is cardiomegaly. There is no focal infiltrate or pneumothorax or pleural fluid. IMPRESSION: Cardiomegaly with no acute process in the chest. Dictated by: Dictated on workstation # [id number] Dict: 04/08/22 1343 Trans: 04/08/22 1442 [id number] Interpreted by: LISE ALBARRAN MD Electronically signed by: LISE ALBARRAN MD 04/08/22 1447 Diagonstic Imaging: CT Plain Films/CT/US/NM/MRI: head Comments [facility] [place] [place] NAME: SEA HORNER [facility] REC#: [id number] PT STATUS: REG ER : 1940 PHYSICIAN: CHINA MORALES MD ADMIT DATE: 04/08/22/ER Draft Date of Exam:04/08/22 CT HEAD WO-R/O STROKE CLINICAL INDICATION: Patient from [facility]. Last known well at 1115 hours. Decreased level of consciousness. Patient leaning to the left with left-sided facial droop. Upon EMS arrival, patient was back to baseline. EXAM: Axial CT scan of the brain without IV contrast with coronal and sagittal reformatted images. Auto Exposure Controls were utilized during the CT exam to meet ALARA standards for radiation dose reduction. COMPARISON: None. FINDINGS: There is no evidence of acute cerebral infarct, intracranial hemorrhage, or gross mass effect. There is diffuse brain parenchymal volume loss. There are patchy areas of low density throughout both cerebral hemispheres and periventricular regions which may be related to chronic small vessel ischemic disease and leukoaraiosis. There is normal arias-white matter distinction. There is no significant midline shift or herniation. There is no evidence of hydrocephalus. The basal cisterns are unremarkable. The skull, extracranial soft tissue, and orbits are unremarkable. The paranasal sinuses are unremarkable. Temporal bones show no significant abnormality. IMPRESSION: 1: There is no CT evidence of acute intracranial process. There is no dense vessel sign. 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 Results of this report were discussed with Dr. Morales via the telephone on 04/08/2022 at 1335 hours. Dictated on workstation # [id number] Dict: 04/08/22 1327 Trans: 04/08/22 1345 [id number] Interpreted by: WALESKA LAWLER MD Electronically signed by: Departure Impression Primary Impression: Transient cerebral ischemia Qualified Codes: G45.9 - Transient cerebral ischemic attack, unspecified Disposition: HOME, SELF-CARE Condition: Stable Departure-Patient Inst. Decision time for Depature: 14:50 Referrals: NO,LOCAL PHYSICIAN (PCP/Family) Primary Care Physician Patient Instructions: Transient Ischemic Attack (DC) Add. Discharge Instructions: All discharge instructions reviewed with patient and/or family. Voiced understanding. Follow-up with your doctor in a few days for recheck and further evaluation. You may discuss consideration for aspirin with patient's primary care provider. Otherwise continue previous diet and activity. Return for worse pain, fever, vomiting, weakness, breathing problems or other concerns as needed. Copy Copies To 1: ARMOND TITUS APRN, TIMOTHY D MD Apr 08, 2022 13:39
--- NOTE | 2022-04-08 13:46 | Diagnostic Imaging Report ---
INDICATION: Stroke, decreased level of consciousness and facial droop. Frontal chest obtained at 1:31 p.m. and compared to 12/17/2021. FINDINGS: There is cardiomegaly. There is no focal infiltrate or pneumothorax or pleural fluid. IMPRESSION: Cardiomegaly with no acute process in the chest. Dictated by: Dictated on workstation # [id number]
--- NOTE | 2022-04-08 13:46 | Diagnostic Imaging Report ---
CLINICAL INDICATION: Patient from [facility]. Last known well at 1115 hours. Decreased level of consciousness. Patient leaning to the left with left-sided facial droop. Upon EMS arrival, patient was back to baseline. EXAM: Axial CT scan of the brain without IV contrast with coronal and sagittal reformatted images. Auto Exposure Controls were utilized during the CT exam to meet ALARA standards for radiation dose reduction. COMPARISON: None. FINDINGS: There is no evidence of acute cerebral infarct, intracranial hemorrhage, or gross mass effect. There is diffuse brain parenchymal volume loss. There are patchy areas of low density throughout both cerebral hemispheres and periventricular regions which may be related to chronic small vessel ischemic disease and leukoaraiosis. There is normal arias-white matter distinction. There is no significant midline shift or herniation. There is no evidence of hydrocephalus. The basal cisterns are unremarkable. The skull, extracranial soft tissue, and orbits are unremarkable. The paranasal sinuses are unremarkable. Temporal bones show no significant abnormality. IMPRESSION: 1: There is no CT evidence of acute intracranial process. There is no dense vessel sign. 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 Results of this report were discussed with Dr. Lorenzo via the telephone on 04/08/2022 at 1335 hours. Dictated by: Dictated on workstation # [id number]
[2022-04-08 14:57] VITALS: BP 143/74
== END 2022-04-08 15:08 | disposition home or self-care (01) ==
LOC: EDUNIT# 12:31 → ER 12:32
DX: G45.9 Transient cerebral ischemic attack, unspecified (principal); R79.1 Abnormal coagulation profile
CPT/HCPCS: 36415; 70450; 71045; 80053; 82947; 84484; 85025; 85379; 85610; 85730; 93005; 93041